=== PATIENT | female | born 1960 | race Caucasian/White ===

== ENCOUNTER → 2024-01-26 11:09 | Outpatient (REF) | payer OTHER, SELFPAY | LOC: MRI 3T 11:09 | PROVIDERS: ATTENDING PHYSICIAN Orthopaedic Surgery Sports Medicine; FAMILY PHYSICIAN Nurse Practitioner | DX: M19.012 Primary osteoarthritis, left shoulder (principal) | CPT/HCPCS: 73221 ==

== ENCOUNTER → 2024-11-06 13:51 | Outpatient (REF) | payer OTHER, SELFPAY | LOC: MRI 3T 13:51 | PROVIDERS: ATTENDING PHYSICIAN Physician Assistant Surgical; FAMILY PHYSICIAN Nurse Practitioner | DX: R20.2 Paresthesia of skin (principal); M54.12 Radiculopathy, cervical region; M54.2 Cervicalgia | CPT/HCPCS: 72141 ==

== ENCOUNTER → 2025-03-22 08:51 | Outpatient (REF) | payer OTHER, SELFPAY | LOC: HWRCS 08:51 | PROVIDERS: ATTENDING PHYSICIAN Internal Medicine Cardiovascular Disease; FAMILY PHYSICIAN Nurse Practitioner | DX: I50.32 Chronic diastolic (congestive) heart failure (principal) | CPT/HCPCS: 93306 ==